=== PATIENT | male | born 1945 | race Caucasian/White ===

== ENCOUNTER 2017-05-29 16:04 | Outpatient (RCR) | payer MEDICARE, OTHER ==
[~2017-05-29 16:04] MED LIST: AMLO5TAB2 PO; ASPI-266 PO; CEPH500C PO; CIPR-225 PO; CPR500T; FAMO20TA5 PO; HYDR-3816 PO; HYOS0.1283 SL; LVT.025T PO; MULT-608; NAPR500T72; NAPR500T72 PO; ONDA4TAB8 PO; PRAM1TAB5 PO; SIMV40TA4 PO
== END 2017-06-11 10:43 | disposition home or self-care (01) ==
PROVIDERS: ATTEND Nurse Practitioner Family
DX: M43.6 Torticollis (principal)

== ENCOUNTER 2017-12-09 16:11 | Outpatient (RCR) | payer MEDICARE, OTHER | END 2017-12-10 09:15 | disposition home or self-care (01) | PROVIDERS: ATTEND Orthopaedic Surgery Orthopaedic Surgery of the Spine | DX: M48.02 Spinal stenosis, cervical region (principal); M50.30 Other cervical disc degeneration, unspecified cervical region ==

== ENCOUNTER → 2018-07-12 | Outpatient (CLI) | payer MEDICARE, OTHER ==
--- NOTE | 2018-07-12 17:26 | Diagnostic Imaging Report ---
INDICATION: COPD. Dyspnea. Time of exam 3:18 p.m. COMPARISON: Comparison is made with prior chest from 04/18/2016. FINDINGS: The heart size is stable. Lungs do show some hyperinflation consistent with COPD. There is minimal scarring or subsegmental atelectasis in the left base. Otherwise the lungs are clear. No infiltrate is seen. No effusion or pneumothorax is detected. IMPRESSION: COPD and chronic basilar scarring. No acute feature is detected. Dictated by: Dictated on workstation # [id number]
== END ==
LOC: RAD 14:38
PROVIDERS: ATTEND Nurse Practitioner Family
DX: J44.9 Chronic obstructive pulmonary disease, unspecified (principal); G47.10 Hypersomnia, unspecified
CPT/HCPCS: 71046

== ENCOUNTER → 2019-07-27 | Outpatient (CLI) | payer MEDICARE, OTHER ==
--- NOTE | 2019-07-27 15:39 | Diagnostic Imaging Report ---
PROCEDURE: US Thyroid. TECHNIQUE: Multiple real-time grayscale images were obtained of the thyroid in various projections. INDICATION: Thyroid nodule. FINDINGS: The previous thyroid ultrasound exam of 07/24/2015 noted two small (5 and 2 mm) nodules in the right lobe of the thyroid. On this exam the 5 mm nodule in the inferior pole of the right lobe of the thyroid seen previously is again evident and essentially no different. The 2 mm nodule is not well-visualized. The thyroid gland is otherwise unremarkable. The thyroid gland is normal in size with the right lobe measuring 4.7 x 1.7 x 1.1 cm and the left lobe estimated to be 4.8 x 0.8 x 1.0 cm (normal gland size 4-5 x 2 x 2 cm or less). IMPRESSION: Small hypoechoic nodule in the inferior pole of the right lobe of the thyroid seen previously is again evident and no different. The overall appearance of the thyroid gland itself is otherwise unchanged. Dictated by: Dictated on workstation # [id number]
== END ==
LOC: RAD 14:40
PROVIDERS: ATTEND Internal Medicine
DX: E04.1 Nontoxic single thyroid nodule (principal)
CPT/HCPCS: 76536

== ENCOUNTER → 2020-01-13 | Outpatient (CLI) | payer MEDICARE, OTHER ==
--- NOTE | 2020-01-13 15:49 | Diagnostic Imaging Report ---
PROCEDURE: US right lower extremity venous. TECHNIQUE: Multiple real-time grayscale images were obtained over the right lower extremity in various projections. Additional spectral analysis and color Doppler duplex images were also obtained. INDICATION: Right leg swelling. FINDINGS: There is no evidence of right lower extremity DVT. Right lower extremity deep venous system shows normal compressibility with normal response to augmentation and Valsalva. No fluid collection or mass is seen. IMPRESSION: No evidence of right lower extremity DVT. Dictated by: Dictated on workstation # [id number]
== END ==
LOC: RAD 14:46
PROVIDERS: ATTEND Nurse Practitioner Family
DX: M79.89 Other specified soft tissue disorders (principal)

== ENCOUNTER → 2020-01-23 | Outpatient (CLI) | payer MEDICARE, OTHER ==
--- NOTE | 2020-01-23 15:50 | Diagnostic Imaging Report ---
PROCEDURE: MR imaging of the brain without contrast. TECHNIQUE: Multiplanar, multisequence MR imaging of the brain was performed without contrast. INDICATION: Headaches. Dizziness. COMPARISON: CT head without contrast from 03/21/2015. FINDINGS: Moderate generalized cerebral and cerebellar parenchymal volume loss. Advanced confluent T2 hyperintensities in the supratentorial and pontine white matter, compatible with leukoaraiosis. No restricted water diffusion or hemosiderin deposition. Normal morphology including the major midline structures, sella, posterior fossa, and cerebellopontine angle. Normal intracranial flow voids. No hydrocephalus or extra-axial fluid collections. Postoperative changes in the globes. The paranasal sinuses are clear. Normal bone marrow signal. IMPRESSION: 1. No acute intracranial MRI findings. 2. Advanced leukoaraiosis. Moderate generalized cerebral and cerebellar parenchymal volume loss is likely age appropriate. Dictated by: Dictated on workstation # [id number]
--- NOTE | 2020-01-23 16:20 | Diagnostic Imaging Report ---
PROCEDURE: MR imaging cervical spine without contrast. TECHNIQUE: Multiplanar, multisequence MR imaging of the cervical spine was performed without contrast. INDICATION: Headaches. Dizziness. Neck pain. COMPARISON: Cervical spine radiograph 01/11/2016. FINDINGS: Normal alignment. Vertebral body heights are preserved. Modic type I degenerative endplate changes at C5-C6. Bone marrow signal is otherwise unremarkable. No abnormal signal in the cervical spinal cord allowing for the motion. The visualized paravertebral soft tissues are unremarkable. C2-C3: No spinal canal or neural foraminal narrowing. C3-C4: Annular disc bulge and ligamentous hypertrophy results in moderate spinal canal stenosis. Facet arthropathy also contributes to moderate bilateral neural foraminal narrowing. C4-C5: Posterior disc osteophyte complex and ligamentous hypertrophy result in severe spinal canal stenosis. Moderate bilateral neural foraminal narrowing. C5-C6: Posterior disc osteophyte complex and ligamentous hypertrophy result in moderate spinal canal stenosis. Mild bilateral neural foraminal narrowing. C6-C7: Annular disc bulge and ligamentous hypertrophy result in moderate spinal canal stenosis. Moderate left and mild right neural foraminal narrowing. C7-T1: No spinal canal or neural foraminal narrowing. IMPRESSION: 1. Spondylotic changes result in severe spinal canal stenosis at C4-C5. There is more moderate spinal canal stenosis at C3-C4, C5-C6 and C6-C7. 2. Multilevel high-grade neural foraminal narrowing detailed above. 3. No abnormal signal in the cervical spinal cord. Dictated by: Dictated on workstation # [id number]
== END ==
LOC: RAD 13:55
PROVIDERS: ATTEND Nurse Practitioner Family
DX: M47.812 Spondylosis without myelopathy or radiculopathy, cervical region (principal); M48.02 Spinal stenosis, cervical region; I67.81 Acute cerebrovascular insufficiency; G93.89 Other specified disorders of brain; H53.9 Unspecified visual disturbance
CPT/HCPCS: 70551; 72141

== ENCOUNTER → 2020-06-05 | Outpatient (CLI) | payer MEDICARE, OTHER ==
--- NOTE | 2020-06-05 15:26 | Diagnostic Imaging Report ---
PROCEDURE: US right lower extremity venous. TECHNIQUE: Multiple Real-time grayscale images were obtained over the right lower extremity in various projections. Additional spectral analysis and color Doppler duplex images were also obtained. INDICATION: Leg pain and swelling. FINDINGS: The previous right lower extremity venous Doppler exam of 01/13/2020 failed to show any sign of deep venous thrombosis. On this study, there is still generally good blood flow and compressibility at all levels. There is no evidence for a deep venous embolus. IMPRESSION: There is still no evidence for deep venous thrombosis of the right lower extremity. Dictated by: Dictated on workstation # [id number]
--- NOTE | 2020-06-05 15:40 | Diagnostic Imaging Report ---
Right lower extremity arterial Doppler INDICATION: Leg pain and swelling. FINDINGS: Spectral and color-flow imaging of the arterial system in the right lower extremity was performed. There are no prior dedicated right arterial lower extremity exams available for comparison. The noninvasive ultrasound exam of the lower extremities performed on 03/21/2013 noted that the ankle brachial indices were within normal limits. On this study, there is fairly good arterial blood flow throughout the arterial system. Triphasic and biphasic waveforms were seen and there is no abrupt alteration of the velocities to suggest a hemodynamically significant stenosis. Incidental note is made of a sizable collection of atherosclerotic plaque in the common femoral artery. IMPRESSION: 1. There is no evidence for a hemodynamically significant stenosis of the arterial system of the right lower extremity. Dictated by: Dictated on workstation # [id number]
== END ==
LOC: RAD 12:53
PROVIDERS: ATTEND Nurse Practitioner Family
DX: M79.604 Pain in right leg (principal); R22.41 Localized swelling, mass and lump, right lower limb
CPT/HCPCS: 93926

== ENCOUNTER 2020-06-13 14:38 | Emergency (ER) | payer OTHER, MEDICARE ==
[~2020-06-13] VITALS: Ht 178 cm; Wt 70.0 kg
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
[2020-06-13 16:19] VITALS: BP 136/92
== END 2020-06-13 16:19 | disposition home or self-care (01) ==
LOC: EDUNIT# 14:38 → ER 14:39
DX: M54.2 Cervicalgia (principal); E03.9 Hypothyroidism, unspecified; I25.2 Old myocardial infarction; E78.00 Pure hypercholesterolemia, unspecified; G20 Parkinson's disease; I25.10 Atherosclerotic heart disease of native coronary artery without angina pectoris; K21.9 Gastro-esophageal reflux disease without esophagitis; I10 Essential (primary) hypertension; Z79.890 Hormone replacement therapy; Z88.1 Allergy status to other antibiotic agents; Z79.82 Long term (current) use of aspirin
CPT/HCPCS: 70450; 72125; 72128

== ENCOUNTER → 2021-05-29 | Outpatient (CLI) | payer MEDICARE, OTHER ==
--- NOTE | 2021-05-29 14:23 | Diagnostic Imaging Report ---
INDICATION: Shortness of breath. Comparison made with prior examination 07/12/2018 FINDINGS: The heart size is normal. There is mild air trapping. There is no pleural effusion, pneumothorax or pneumonia. Mediastinum is unremarkable. IMPRESSION: Mild air trapping likely reflecting some COPD with some minimal interstitial scarring in the lung bases otherwise unremarkable. Dictated by: Dictated on workstation # [id number]
== END ==
LOC: RAD 12:29
PROVIDERS: ATTEND Nurse Practitioner Family
DX: J44.9 Chronic obstructive pulmonary disease, unspecified (principal)
CPT/HCPCS: 71046

== ENCOUNTER → 2021-06-28 | Outpatient (CLI) | payer SELFPAY ==
--- NOTE | 2021-06-28 16:17 | Diagnostic Imaging Report ---
EXAMINATION: Coronary calcium scoring. INDICATION: Coronary artery disease and chest pain. TECHNIQUE: Thin section axial noncontrast CT was performed through the heart with particular attention paid to the coronary arteries. Presence of extensive coronary calcifications were analyzed using coronary calcium quantification software. FINDINGS: The patient's total coronary calcium score is 427. Breakdown by individual arteries are 0 for the left main. The score for the left anterior descending artery is 114. The circumflex has a score of 85. The right coronary has a total score of 228. The aorta is normal in caliber. Heart size appears appropriate. The visualized portion of the lungs demonstrate no findings of pneumonia or edema. There is, however, a small nodular density evident within the right upper lobe. This appears to be new from a prior CT of the thoracic spine from May 2020. Consider dedicated CT of the chest as follow-up to document stability. IMPRESSION: 1. Total coronary calcium score of 427 with individual arterial breakdown as discussed above. This calcium score places the patient between the 50th and 75th percentile for age and gender matched cohorts. This degree of coronary calcification would suggest that there is a high likelihood of a hemodynamically significant coronary artery stenosis. 2. Partial visualization of a nodular density within the right upper lobe. This appears to be new compared to 2020. Consider dedicated follow-up with CT of the chest. Dictated by: Dictated on workstation # [id number]
== END ==
LOC: RAD FS 15:18
PROVIDERS: ATTEND Nurse Practitioner Family
DX: I25.10 Atherosclerotic heart disease of native coronary artery without angina pectoris (principal)
CPT/HCPCS: 75571

== ENCOUNTER 2021-07-12 09:17 | Outpatient (CLI) | payer MEDICARE, OTHER ==
[~2021-07-12] VITALS: Ht 175.3 cm; Wt 70.7 kg
[2021-07-12 09:28] VITALS: BP 162/86
[2021-07-12] MEDS ORDERED: ACETAMINOPHEN 500 MG TAB (TYLENOL) PO PRN (09:45)
[2021-07-12] MEDS ORDERED: diphenhydrAMINE 50 MG/ML INJ (BENADRYL) IV PRN (09:45)
[2021-07-12] MEDS ORDERED: CASIRIVIMAB/IMDEVIMAB 1,200 MG in NS (IVPB) 50 ML IV ONE (09:45)
[2021-07-12] MEDS ORDERED: EPINEPHrine INJECTION 1 MG/ML AMP IM PRN (09:45)
[2021-07-12] MEDS ORDERED: ONDANSETRON 4 MG/2 ML (SDV) Z0FRAN IV PRN (09:45)
[2021-07-12 10:36] VITALS: BP 136/73
== END 2021-07-12 10:37 ==
LOC: INFUSION 09:17
PROVIDERS: ATTEND Family Medicine
DX: U07.1 COVID-19 (principal)

== ENCOUNTER → 2021-07-22 | Outpatient (CLI) | payer MEDICARE, OTHER ==
[~2021-07-22] MED LIST changes: +CATHETER FLUSH 10 ML SYR IV PRN; +HOLD METFORMIN - RECEIVED CONTRAST 20 ML VIAL IV SCH; +IOHEXOL 350 MG/ML 100 ML (OMNIPAQUE 350) VIAL IV ONE; +NS 100 ML (IVPB) BAG IV ONE
[2021-07-22 09:51] LABS: CREATININE SERUM 0.89 MG/DL (0.60-1.30)
--- NOTE | 2021-07-22 10:54 | Diagnostic Imaging Report ---
PROCEDURE: CT chest with contrast only. TECHNIQUE: Multiple contiguous axial images were obtained through the chest after administration of intravenous contrast. Auto Exposure Controls were utilized during the CT exam to meet ALARA standards for radiation dose reduction. DATE: July 22, 2021. COMPARISON: CT thoracic spine June 13, 2020. INDICATION: 75-year-old male, pulmonary nodule. FINDINGS: There are linear opacities with distortion in the right upper lobe and right middle lobe. There are also additional linear opacities in the right lower lobe and in the left lower lobe. This is compatible with scarring and/or atelectasis. There is a noncalcified pleural-based left upper lobe 4 mm nodule on axial image 84 and adjacent at least partially calcified 4 mm pleural-based nodule on axial image 87. There is no lung mass. There is no additional focal airspace consolidation. There is no pneumothorax. There is no pleural effusion. The central airways are patent. There is nondiagnostic assessment for pulmonary embolus given the timing of the contrast bolus. The main pulmonary artery diameter is within normal limits. There are coronary artery calcifications. The heart is not enlarged. There is no pericardial effusion. There are additional areas of atherosclerotic disease. There is no identified abnormally enlarged mediastinal, hilar, or axillary lymph node meeting CT size criteria for adenopathy. The patient is status post cholecystectomy. The additional evaluation of the imaged portions of the upper abdomen is unremarkable. There are multilevel degenerative changes of the spine. There is incompletely imaged cervical spine hardware. IMPRESSION: CT CHEST. 1. 4 mm pleurally based left upper lobe pulmonary nodule and adjacent similarly sized partially calcified pleural-based pulmonary nodule. These are unchanged since May 2020. Recommend follow-up CT chest in one year to document greater than 2 year stability. No additional pulmonary nodule is identified. 2. Mild multifocal linear opacities in the lungs bilaterally most consistent with scarring. 3. No acute cardiopulmonary abnormality. Dictated by: Dictated on workstation # [id number]
== END ==
LOC: LAB FS 09:14
PROVIDERS: ATTEND Nurse Practitioner Family
DX: R91.8 Other nonspecific abnormal finding of lung field (principal)
CPT/HCPCS: 36415; 71260; 82565; 84520

== ENCOUNTER 2021-09-09 15:35 | Outpatient (RCR) | payer MEDICARE, OTHER ==
[~2021-09-09 15:35] MED LIST changes: -CATHETER FLUSH 10 ML SYR IV PRN; -HOLD METFORMIN - RECEIVED CONTRAST 20 ML VIAL IV SCH; -IOHEXOL 350 MG/ML 100 ML (OMNIPAQUE 350) VIAL IV ONE; -NS 100 ML (IVPB) BAG IV ONE
== END 2021-09-25 16:00 | disposition home or self-care (01) ==
PROVIDERS: ATTEND Neurological Surgery
DX: M40.204 Unspecified kyphosis, thoracic region (principal); Z98.1 Arthrodesis status

== ENCOUNTER → 2021-10-24 | Outpatient (CLI) | payer MEDICARE, OTHER ==
[~2021-10-24] MED LIST changes: +RT-ALBUTEROL SULF 2.5 MG/3 ML PRE-MIX VIAL INH ONE
== END ==
LOC: RT 15:45
PROVIDERS: ATTEND Internal Medicine Critical Care Medicine
DX: J44.9 Chronic obstructive pulmonary disease, unspecified (principal); G47.33 Obstructive sleep apnea (adult) (pediatric)
CPT/HCPCS: 94060; 94621; 94726; 94729

== ENCOUNTER → 2022-07-15 | Outpatient (CLI) | payer MEDICARE, OTHER ==
[~2022-07-15] MED LIST changes: +CATHETER FLUSH 10 ML SYR IV PRN; +HOLD METFORMIN - RECEIVED CONTRAST 20 ML VIAL IV SCH; +IOHEXOL 350 MG/ML 100 ML (OMNIPAQUE 350) VIAL IV ONE; +NS 100 ML (IVPB) BAG IV ONE; -RT-ALBUTEROL SULF 2.5 MG/3 ML PRE-MIX VIAL INH ONE
[2022-07-15 10:48] LABS: CREATININE SERUM 0.9 MG/DL (0.60-1.30)
--- NOTE | 2022-07-15 13:15 | Diagnostic Imaging Report ---
EXAMINATION: CT chest with intravenous contrast. TECHNIQUE: Multiple contiguous axial images were obtained through the chest after the uneventful administration of intravenous contrast. All CT scans use one or more of the following dose optimizing techniques: automated exposure control, MA and/or KvP adjustment based on patient size and exam type or iterative reconstruction. HISTORY: Pulmonary nodule. COMPARISON: 07/22/2021. FINDINGS: There is no edema or pneumonia. No pleural effusion. No pneumothorax. No suspicious nodules. The lungs are emphysematous. There is a stable 4 mm left upper lobe nodule. There is no axillary or supraclavicular lymphadenopathy. There is no mediastinal lymphadenopathy. Heart size is normal. There are severe coronary artery calcifications. No pericardial effusion. Aorta is normal in caliber. Limited views of the upper abdomen show changes of cholecystectomy. There are no suspicious osseus lesions. IMPRESSION: Stable left upper lobe nodule. No further followup needed. Dictated by: Dictated on workstation # [id number]
== END ==
LOC: LAB FS 10:01
PROVIDERS: ATTEND Nurse Practitioner Family
DX: R91.1 Solitary pulmonary nodule (principal)
CPT/HCPCS: 36415; 71260; 82565; 84520

== ENCOUNTER → 2022-08-06 | Outpatient (CLI) | payer MEDICARE ==
[~2022-08-06] MED LIST changes: -CATHETER FLUSH 10 ML SYR IV PRN; -HOLD METFORMIN - RECEIVED CONTRAST 20 ML VIAL IV SCH; -IOHEXOL 350 MG/ML 100 ML (OMNIPAQUE 350) VIAL IV ONE; -NS 100 ML (IVPB) BAG IV ONE
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
== END ==
LOC: RAD 07:32
PROVIDERS: ATTEND Nurse Practitioner Family
DX: M48.02 Spinal stenosis, cervical region (principal); M48.03 Spinal stenosis, cervicothoracic region; M50.33 Other cervical disc degeneration, cervicothoracic region; H53.9 Unspecified visual disturbance; R51.9 Headache, unspecified
CPT/HCPCS: 70551; 72141